=== PATIENT | male | born 1990 ===

== ENCOUNTER 2021-03-20 10:22 | Emergency (ER) | payer OTHER ==
[~2021-03-20] VITALS: Ht 180.3 cm; Wt 117.0 kg
[2021-03-20] MEDS ORDERED: IBUPROFEN 800 MG TAB PO ONE (13:30)
[2021-03-20] MEDS ORDERED: KETOROLAC TROMETH 60MG/2ML VIAL IM ONE (13:30)
[2021-03-20 14:08] VITALS: BP 129/75
== END 2021-03-20 14:14 | disposition home or self-care (01) ==
LOC: EDBD 10:22 → ER 10:22
DX: S76.912A Strain of unspecified muscles, fascia and tendons at thigh level, left thigh, initial encounter (principal); W23.0XXA Caught, crushed, jammed, or pinched between moving objects, initial encounter; Y93.89 Activity, other specified; Y92.89 Other specified places as the place of occurrence of the external cause; Y99.8 Other external cause status